=== PATIENT | male | born 1995 | race Caucasian/White ===

== ENCOUNTER 2022-09-10 19:03 | Emergency (ER) | payer SELFPAY ==
--- NOTE | 2022-09-10 19:19 | ED.WOUNDLAC ---
HPI - Wound/Laceration General Chief Complaint: Wound/Laceration Stated Complaint: Picky Lac Related Data Allergies Allergy/AdvReac Type Severity Reaction Status Date / Time No Known Allergies Allergy Unverified 03/27/20 16:16 [No Known Allergies*] [facility] Social History Social History Advance Directives: No Physical Exam Vital Signs: Vital Signs: Last Vital Signs Temp 98 F 09/10/22 19:23 Pulse 100 09/10/22 19:23 Resp 20 09/10/22 19:23 BP 157/93 H 09/10/22 19:23 Pulse Ox 96 09/10/22 19:23 O2 Del Method 09/10/22 19:23 BMI result Body Mass Index 24.4 Course Course Course Narrative: This is an RME: Additional HPI, ROS, PE not included below will be deferred to primary provider. Patient is a 27-year-old male presents to the emergency department for evaluation of laceration to the right 5th digit. Was using a mandolin, and sliced a part of his pinky finger off [employer]. reports last tetanus vaccine >5yrs ago. He is very anxious, hyperverbal, endorses ETOH usage today. Denies anticoagulant usage. Plan: active bleeding, xeroform gauze placed, wrapped with CDD. XR hand to evaluate for osseous involvement, patient refusing XR imaging, TDap Discharge Plan Discharge Clinical Impression: Laceration Patient Disposition: Elopement Interventions: ED Discharge Assessment Last Done: 09/10/22 22:35 Discharge Date/Time: 09/10/22 22:50
[2022-09-10 19:23] VITALS: BP 157/93; PULSE 100; RESP 20; TEMP 36.6; O2SAT 96; BMI 24.4
== END 2022-09-10 22:50 | disposition left against medical advice (07) ==
LOC: HO.ED 22:37
PROVIDERS: Emergency Provider Emergency Medicine
DX: S61.216A Laceration without foreign body of right little finger without damage to nail, initial encounter (principal); X58.XXXA Exposure to other specified factors, initial encounter; Y93.9 Activity, unspecified; Y92.9 Unspecified place or not applicable; Y99.9 Unspecified external cause status
CPT/HCPCS: 99282